=== PATIENT | female | born 1940 | race Caucasian/White ===

== ENCOUNTER 2023-07-13 19:49 | Emergency (ER) | payer BC, MEDICARE, OTHER ==
[~2023-07-13] VITALS: Ht 157.5 cm; Wt 90.7 kg
[2023-07-13 19:58] VITALS: BP_SYST 156; PULSE 97; RESP 20; TEMP 98.8; O2SAT 95
[2023-07-13] MEDS ORDERED: AUG875 PO (20:15)
[2023-07-13] MEDS ORDERED: DIPHTH,PERTUSS(ACELL),TET VAC 0.5 ML VIAL (Tdap) I.M. ONE (20:15)
[2023-07-13 21:01] VITALS: BP_SYST 156; PULSE 97; RESP 20; TEMP 98.8; O2SAT 95
== END 2023-07-13 20:30 | disposition home or self-care (01) ==
LOC: SED 19:49
DX: S61.452A Open bite of left hand, initial encounter (principal); Z79.899 Other long term (current) drug therapy; W54.0XXA Bitten by dog, initial encounter; Y93.89 Activity, other specified; Y92.89 Other specified places as the place of occurrence of the external cause; Y99.8 Other external cause status
CPT/HCPCS: 90715; 99283